=== PATIENT | male | born 2005 | race Caucasian/White ===

== ENCOUNTER 2024-04-22 20:49 | Emergency (ER) | payer OTHER ==
[~2024-04-22] VITALS: Ht 188 cm; Wt 79.5 kg
[2024-04-22] MEDS ORDERED: Ibuprofen 400 MG TAB PO ONE (21:00)
[2024-04-22] MEDS ORDERED: ROBAXIN 50500 MG/TAB PO (22:18)
[2024-04-22 22:26] VITALS: BP 121/68; PULSE 58; TEMP 98
[2024-04-22] MEDS ORDERED: CEPHALEXIN500 M1 PO (22:26)
== END 2024-04-22 22:26 | disposition home or self-care (01) ==
LOC: COL.ER 20:49
DX: S43.402A Unspecified sprain of left shoulder joint, initial encounter (principal); L08.9 Local infection of the skin and subcutaneous tissue, unspecified; W20.8XXA Other cause of strike by thrown, projected or falling object, initial encounter